=== PATIENT | female | born 1975 | race Caucasian/White ===

== ENCOUNTER 2024-06-08 13:52 | Inpatient (IN) | payer BC ==
[~2024-06-08] VITALS: Ht 170.2 cm; Wt 84.6 kg
[2024-06-08] MEDS: PANTOPRAZOLE 40MG TAB (PROTONIX) PO SCH (09:00)
[2024-06-08 14:36] LABS: BASO # 0.1 10^3/uL (0.0-0.2); BASO % 0.3 % (0.0-1.0); HEMATOCRIT 43.6 % (36.0-47.0); HEMOGLOBIN 14.6 g/dl (12.0-15.5); LYMPH # 0.6 10^3/uL (1.5-5.0); MEAN CORPUSCULAR HEMOGLOBIN 30.7 pg (27.0-33.0); MEAN CORPUSCULAR HGB CONC 33.5 g/dl (32.0-36.5); MEAN CORPUSCULAR VOLUME 91.6 fl (80.0-96.0); MONO # 0.6 10^3/uL (0.0-0.8); MONO % 2.8 % (2.0-8.0); NEUTROPHILS # 19.6 10^3/uL (1.5-8.5); NEUTROPHILS % 93.1 % (36.0-66.0); PLATELET COUNT, AUTOMATED 235 10^3/uL (150-450); RED BLOOD COUNT 4.76 10^6/uL (4.00-5.40); WHITE BLOOD COUNT 21.1 10^3/uL (4.0-10.0)
[2024-06-08] MEDS: ACETAMINOPHEN *IV* 1,000 MG in IV 1 EA IV ONE (14:38)
[2024-06-08 14:43] LABS: KETONE, URINE AUTO RFX NEGATIVE (NEGATIVE); LEUKOCYTE ESTERASE UR AUTO RFX NEGATIVE (NEGATIVE); MUCUS, URINE RFX SMALL (NEGATIVE); NITRITE, URINE AUTO RFX NEGATIVE (NEGATIVE); RBC, URINE AUTO RFX 0 /HPF (0-3); SQUAM EPITHELIAL CELL UR AURFX 1 /HPF (0-6); WBC, URINE AUTO RFX 0 /HPF (0-3)
[2024-06-08 14:49] LABS: INR 0.94; PARTIAL THROMBOPLASTIN TIME 24.6 SECONDS (24.8-34.2); PROTHROMBIN TIME 12.9 SECONDS (12.5-14.5)
[2024-06-08] MEDS: NS (Normal Saline) 0.9% 1,000 ML IV ONE (14:50)
[2024-06-08 14:53] LABS: LIPASE 28 U/L (12-53)
[2024-06-08 14:58] LABS: ALBUMIN 4.1 G/DL (3.2-5.2); ALKALINE PHOSPHATASE 99 U/L (35-104); ALT/SGPT 18 U/L (7.0-40); AST/SGOT 17 U/L (<34); BILIRUBIN,DIRECT 0.6 MG/DL (<0.4); BILIRUBIN,TOTAL 2.5 MG/DL (0.3-1.2); BLOOD UREA NITROGEN 17 MG/DL (9-23); CARBON DIOXIDE LEVEL 27 MMOL/L (20-31); CHLORIDE LEVEL 102 MMOL/L (98-107); CK-MB VALUE MASS < 1.0 NG/ML (<3.6); CPK CREATINE PHOSPHOKINASE 47 U/L (34-145); FREE T4 1.16 NG/DL (0.89-1.76); GLOMERULAR FILTRATION RATE 89.7 (>51); GLUCOSE, FASTING 103 MG/DL (60-100); MB/CK RELATIVE INDEX 2.12 (< OR =4); POTASSIUM SERUM 4.1 MMOL/L (3.5-5.1); SODIUM LEVEL 139 MMOL/L (136-145); THYROID STIMULATING HORMONE 0.758 uIU/ML (0.55-4.78); TOTAL PROTEIN 7.1 G/DL (5.7-8.2)
[2024-06-08] MEDS ORDERED: ISOVUE-370 76% 100ML VIAL As Ordered ONE (15:21)
[2024-06-08 15:49] LABS: CK-MB VALUE MASS < 1.0 NG/ML (<3.6)
[2024-06-08 15:50] LABS: CPK CREATINE PHOSPHOKINASE 37 U/L (34-145)
[2024-06-08] MEDS: MORPHINE 4 MG/ML 1ML VIAL IV ONE (16:19)
[2024-06-08] MEDS: [UNRECOGNIZED DRUG - OTHER] IV ONE (16:59)
[2024-06-08] MEDS: NS 0.9% IV ONE (16:59)
[2024-06-08] MEDS: LevoFLOXacin IV 750 MG in IV 1 EA IV ONE (16:59)
[2024-06-08] MEDS ORDERED: MOM 30ML SUSPENSION UDC PO PRN (17:25)
[2024-06-08] MEDS: SUCRALFATE 1 GM TAB PO SCH (17:38)
[2024-06-08] MEDS ORDERED: BUSP5TA PO (17:59)
[2024-06-08] MEDS ORDERED: VITA-198 PO (17:59)
[2024-06-08] MEDS ORDERED: VENTAER INH (17:59)
[2024-06-08] MEDS ORDERED: VIT1TAB.8 PO (17:59)
[2024-06-08] MEDS ORDERED: HOME MED LIST COMPLETE! XX SCH (18:00)
[2024-06-08 18:29] LABS: PROCALCITONIN 0.12 ng/ml
[2024-06-08 21:54] VITALS: BP 106/69; TEMP 98.4; O2SAT 98
[2024-06-08] MEDS: MAALOX 30 ML SUSP *UDC PO PRN (22:13)
[2024-06-08] MEDS: NS (Normal Saline) 0.9% 1,000 ML IV SCH (22:13)
[2024-06-09] MEDS: ACETAMINOPHEN 325 MG TAB PO PRN (03:41)
[2024-06-09 04:00] VITALS: BP 100/58; TEMP 98.6; O2SAT 94
[2024-06-09 05:25] LABS: BASO # 0.1 10^3/uL (0.0-0.2); BASO % 0.3 % (0.0-1.0); EOS # 0.2 10^3/uL (0.0-0.5); HEMATOCRIT 36.3 % (36.0-47.0); LYMPH # 1.8 10^3/uL (1.5-5.0); LYMPH % 11.7 % (24.0-44.0); MEAN CORPUSCULAR HEMOGLOBIN 30.9 pg (27.0-33.0); MEAN CORPUSCULAR HGB CONC 33.3 g/dl (32.0-36.5); MEAN CORPUSCULAR VOLUME 92.8 fl (80.0-96.0); MONO # 0.4 10^3/uL (0.0-0.8); MONO % 2.9 % (2.0-8.0); NEUTROPHILS # 12.9 10^3/uL (1.5-8.5); NEUTROPHILS % 83.8 % (36.0-66.0); PLATELET COUNT, AUTOMATED 211 10^3/uL (150-450); RED BLOOD COUNT 3.91 10^6/uL (4.00-5.40); WHITE BLOOD COUNT 15.4 10^3/uL (4.0-10.0)
[2024-06-09 05:43] LABS: HEMOGLOBIN 12.1 g/dl (12.0-15.5)
[2024-06-09 05:52] LABS: ALBUMIN 3.1 G/DL (3.2-5.2); BILIRUBIN,DIRECT 0.8 MG/DL (<0.4); BILIRUBIN,TOTAL 2.6 MG/DL (0.3-1.2); MAGNESIUM LEVEL 1.8 MG/DL (1.8-2.4); TOTAL PROTEIN 5.7 G/DL (5.7-8.2)
[2024-06-09] MEDS: ENOXAPARIN 40MG/0.4ML SYRINGE (J1650 PER 10MG) SC SCH (08:01)
[2024-06-09] MEDS ORDERED: ALBUTEROL 90 MCG/ACT 8GM HFA INHALER INH PRN (09:50)
[2024-06-09] MEDS: busPIRone 5 MG TAB PO SCH (10:30)
[2024-06-09] MEDS: FIORICET TAB PO STA (10:30)
[2024-06-09] MEDS: LevoFLOXacin 750 MG TABLET PO ONE (10:31)
[2024-06-09 12:00] VITALS: BP 106/63; TEMP 97.9; O2SAT 99
[2024-06-09 20:30] VITALS: BP 105/69; TEMP 98.1; O2SAT 96
[2024-06-09] MEDS: SENOKOT S TAB PO SCH (20:41)
[2024-06-09] MEDS: BISACODYL 10MG SUPP PR PRN (20:41)
[2024-06-10 01:23] VITALS: BP 98/58; TEMP 97.9; O2SAT 97
[2024-06-10] MEDS: SODIUM CHLORIDE 0.9% 1000 ML IV ONE (02:54)
[2024-06-10 05:12] LABS: BASO % 0.6 % (0.0-1.0); EOS # 0.3 10^3/uL (0.0-0.5); EOS % 4.1 % (0.0-3.0); HEMATOCRIT 36.5 % (36.0-47.0); LYMPH % 29.6 % (24.0-44.0); MEAN CORPUSCULAR HEMOGLOBIN 30.5 pg (27.0-33.0); MEAN CORPUSCULAR HGB CONC 32.9 g/dl (32.0-36.5); MEAN CORPUSCULAR VOLUME 92.6 fl (80.0-96.0); MONO # 0.4 10^3/uL (0.0-0.8); MONO % 5.5 % (2.0-8.0); NEUTROPHILS # 4.1 10^3/uL (1.5-8.5); NEUTROPHILS % 60.1 % (36.0-66.0); PLATELET COUNT, AUTOMATED 198 10^3/uL (150-450); RED BLOOD COUNT 3.94 10^6/uL (4.00-5.40); WHITE BLOOD COUNT 6.9 10^3/uL (4.0-10.0)
[2024-06-10 05:52] VITALS: BP 98/60; TEMP 97.9; O2SAT 95
[2024-06-10] MEDS: LevoFLOXacin 750 MG TABLET PO SCH (05:58)
[2024-06-10] MEDS ORDERED: PANT40TA29 PO (11:01)
[2024-06-10] MEDS ORDERED: LEVO75TAB PO (11:01)
[2024-06-10 12:00] VITALS: BP 98/58; TEMP 97.9; O2SAT 97
[2024-06-10] MEDS: FIORICET TAB PO PRN (17:15)
[2024-06-10 19:42] VITALS: BP 115/70; TEMP 98.1; O2SAT 97
[2024-06-11 05:59] VITALS: BP 113/70; TEMP 97.9; O2SAT 95
== END 2024-06-11 12:11 | disposition home or self-care (01) | DRG 723 ==
LOC: EDBD 13:52 → M ED 13:52 → M ED INP 17:24 → M MSPAV 21:54
PROVIDERS: ADMIT Student in an Organized Health Care Education/Training Program; ATTEND Student in an Organized Health Care Education/Training Program
PROC: B246ZZZ Ultrasonography of Right and Left Heart (ICD-10-PCS; principal; 2024-06-10)
DX: B34.9 Viral infection, unspecified (principal); R65.10 Systemic inflammatory response syndrome (SIRS) of non-infectious origin without acute organ dysfunction; R45.851 Suicidal ideations; R07.9 Chest pain, unspecified; F41.0 Panic disorder [episodic paroxysmal anxiety]; F32.A Depression, unspecified; R53.1 Weakness; R53.81 Other malaise; E80.6 Other disorders of bilirubin metabolism; R00.1 Bradycardia, unspecified; G43.909 Migraine, unspecified, not intractable, without status migrainosus; M79.18 Myalgia, other site; Z87.891 Personal history of nicotine dependence; Z88.0 Allergy status to penicillin; Z88.2 Allergy status to sulfonamides; Z79.899 Other long term (current) drug therapy

== ENCOUNTER → 2024-08-07 | Outpatient (CLI) | payer BC ==
[~2024-08-07] MED LIST: BUSP5TA PO; LEVO75TAB PO; PANT40TA29 PO; THERTAB52 PO; VENTAER INH; VIT1TAB.8 PO; VITA-198 PO
[2024-08-07 08:50] LABS: BASO # 0.1 10^3/uL (0.0-0.2); BASO % 1.1 % (0.0-1.0); EOS # 0.2 10^3/uL (0.0-0.5); EOS % 3.4 % (0.0-3.0); LYMPH # 1.9 10^3/uL (1.5-5.0); LYMPH % 31.4 % (24.0-44.0); MONO # 0.3 10^3/uL (0.0-0.8); MONO % 5.3 % (2.0-8.0); NEUTROPHILS # 3.6 10^3/uL (1.5-8.5); NEUTROPHILS % 58.8 % (36.0-66.0); PLATELET COUNT, AUTOMATED 249 10^3/uL (150-450)
[2024-08-07 08:54] LABS: ERYTHROCYTE SEDIMENTATION RATE 12 mm/hr (0-30)
[2024-08-07 09:17] LABS: ALT/SGPT 18 U/L (7.0-40); AST/SGOT 16 U/L (<34); C REACTIVE PROTEIN QUANTITATIV < 0.50 MG/DL (<1.0); CALCIUM LEVEL 9.1 MG/DL (8.5-10.1); CARBON DIOXIDE LEVEL 28 MMOL/L (20-31); CHLORIDE LEVEL 105 MMOL/L (98-107); CREATININE FOR GFR 0.85 MG/DL (0.55-1.30); GLOMERULAR FILTRATION RATE 83.4 (>51); POTASSIUM SERUM 4.7 MMOL/L (3.5-5.1); RHEUMATOID FACTOR QUANT < 3.5 IU/ML (<14); SODIUM LEVEL 141 MMOL/L (136-145)
[2024-08-07 09:20] LABS: VITAMIN B12 LEVEL 488 PG/ML (211-911)
[2024-08-12 14:44] LABS: SSA SJOGRENS A <1.0 NEG AI (<1.0 NEG); SSB SJOGRENS B <1.0 NEG AI (<1.0 NEG)
[2024-08-13 16:09] LABS: HLA-B27 Negative (Negative)
== END ==
LOC: M LAB 07:45
PROVIDERS: ATTEND Student in an Organized Health Care Education/Training Program
DX: R17 Unspecified jaundice (principal); R76.8 Other specified abnormal immunological findings in serum; R53.83 Other fatigue